=== PATIENT | female | born 1970 | race African-American/Black ===

== ENCOUNTER → 2016-12-31 | Outpatient (CLI) | payer BC ==
--- NOTE | 2017-01-01 09:45 | RAD ---
HISTORY: Dysphagia, difficulty swallowing, food gets stuck Study: Barium swallow Comparison: None available Technique: Multiple fluoroscopic images of the esophagus were obtained during the administration of oral barium. A total of 55 fluoroscopic spot images were obtained in the course of the exam. Findings: The swallowing mechanism is grossly unremarkable. The thoracic esophagus demonstrates normal motilit y without evidence for extrinsic or intrinsic mass lesion. A small central sliding hiatal hernia is observed with associated reflux to the mid thoracic esophagus noted during the course of the exam. A 13 mm pill passes without delayed transit. The total fluoroscopy time utilized was 2.25 min minutes. IMPRESSION: A small central sliding hiatal hernia is observed with gastroesophageal reflux to the mid thoracic e sophagus noted to be present. Reported By:
== END ==
LOC: RAD 08:57
PROVIDERS: ATTEND Internal Medicine
DX: R13.19 Other dysphagia (principal)
CPT/HCPCS: 70370

== ENCOUNTER → 2017-03-27 | Outpatient (CLI) | payer BC ==
--- NOTE | 2017-03-27 11:54 | US ---
Ultrasound liver Indication: Right upper quadrant pain. History of cholecystectomy in 2010. Technique: Dynamic grayscale and Doppler imaging through the right upper quadrant. Findings: The right kidney is normal measuring 10.2 cm in length. Pancreas is normal where visualized . The gallbladder is absent. Liver parenchyma is relatively normal in echotexture, with normal Dopple r flow demonstrated. Common bile duct measures about 5 mm. The liver measures about 20 cm in length. Impression: 1. Liver appears enlarged. Correlate with hepatic biochemical profile. 2. No significant biliary dilatation or other abnormality. Reported By:
== END ==
LOC: RAD 09:45
PROVIDERS: ATTEND Internal Medicine Gastroenterology
DX: R10.11 Right upper quadrant pain (principal)
CPT/HCPCS: 76705